=== PATIENT | male | born 1965 | race American Indian/Alaskan Native ===

== ENCOUNTER → 2025-03-03 | Outpatient (CLI) | payer OTHER, SELFPAY ==
--- NOTE | 2025-03-03 | XR_ITS ---
Examination: Hand, right 3 views Technique: Hand AP, oblique, lateral 3 views Date and time of exam: March 03, 2025 1218 hours INDICATIONS: Injured the hand 3 days ago, hand pain FINDINGS: Moderate osteopenia Acute intra-articular fracture distal radial metaphysis No significant displacement IMPRESSION: Acute intra-articular fracture distal radial metaphysis, no significant displacement
--- NOTE | 2025-03-03 | XR_ITS ---
Examination: Forearm, right, 2 views. Technique: Forearm, AP, lateral 2 views Date and time of exam: March 03, 2025 1218 hours INDICATIONS: Injured the forearm 3 days ago with pain FINDINGS: Acute intra-articular fracture distal radial metaphysis, without significant displacement Ulnar intact IMPRESSION: Acute intra-articular fractures distal radial metaphysis
== END | disposition home or self-care (01) ==
PROVIDERS: PCP Physician Assistant; Referring Provider Physician Assistant; Visit Provider Physician Assistant
DX: S52.91XA Unspecified fracture of right forearm, initial encounter for closed fracture (principal); S59.911A Unspecified injury of right forearm, initial encounter; X58.XXXA Exposure to other specified factors, initial encounter
CPT/HCPCS: 73090; 73130

== ENCOUNTER → 2025-03-24 | Outpatient (CLI) | payer OTHER, SELFPAY ==
--- NOTE | 2025-03-24 10:39 | XR_ITS ---
Examination: Wrist, right 3 views Technique: Wrist AP, oblique, lateral 3 views Date and time of exam: March 24, 2025 1054 hours Comparison March 03, 2025 INDICATIONS: Acute fractures distal radial metaphyseal region on plain films March 03, 2025 FINDINGS: Partial healing fractures distal radial metaphysis with stable and satisfactory alignment IMPRESSION: Partial healing acute intra-articular fractures distal radial metaphysis with stable and satisfactory alignment
--- NOTE | 2025-03-24 10:39 | XR_ITS ---
Examination: Hand, right 3 views Technique: Hand AP, oblique, lateral 3 views Date and time of exam: March 24, 2025 1054 hours INDICATIONS: History acute intra-articular fractures distal radial metaphysis on films March 03, 2025 FINDINGS: These films do not include the wrist Carpal bones metacarpals and phalanges appear intact IMPRESSION: No and fracture noted
== END | disposition home or self-care (01) ==
PROVIDERS: PCP Physician Assistant; Referring Provider Nurse Practitioner Gerontology; Visit Provider Nurse Practitioner Gerontology
DX: M25.531 Pain in right wrist (principal); M79.641 Pain in right hand
CPT/HCPCS: 73110; 73130

== ENCOUNTER → 2025-04-07 | Outpatient (CLI) | payer OTHER, SELFPAY ==
--- NOTE | 2025-04-07 | XR_ITS ---
Examination: Wrist, right 3 views Technique: Wrist AP, oblique, lateral 3 views Date and time of exam: April 07, 2025 0711 hours Comparison March 03, 2025 INDICATIONS: Fracture distal radius acute March 03, 2025 FINDINGS: Partial healing intra-articular fracture distal radial metaphysis with stable and satisfactory alignment. IMPRESSION: Partial healing fractures distal radial metaphysis with stable and satisfactory alignment
== END | disposition home or self-care (01) ==
LOC: CDIM 06:54
PROVIDERS: PCP Physician Assistant; Referring Provider Surgery; Visit Provider Surgery
DX: S52.91XA Unspecified fracture of right forearm, initial encounter for closed fracture (principal); X58.XXXA Exposure to other specified factors, initial encounter
CPT/HCPCS: 73110

== ENCOUNTER → 2025-04-21 | Outpatient (CLI) | payer OTHER, SELFPAY ==
--- NOTE | 2025-04-21 | XR_ITS ---
Examination: Wrist, right 3 views Technique: Wrist AP, oblique, lateral 3 views Date and time of exam: April 21, 2025 0757 hours Comparison March 24, 2025 INDICATIONS: Acute fracture distal radius March 03, 2025 FINDINGS: A partial healing fracture distal radial metaphysis with stable and satisfactory alignment IMPRESSION: A partial healing fractures distal radial metaphysis and distal shaft of the radius with stable and satisfactory alignment
== END | disposition home or self-care (01) ==
LOC: CDIM 07:47
PROVIDERS: PCP Physician Assistant; Referring Provider Surgery; Visit Provider Surgery
DX: S52.91XA Unspecified fracture of right forearm, initial encounter for closed fracture (principal); X58.XXXA Exposure to other specified factors, initial encounter
CPT/HCPCS: 73110